=== PATIENT | male | born 1960 | race Caucasian/White ===

== ENCOUNTER 2023-10-03 14:32 | Emergency (ER) | payer BC ==
[~2023-10-03] VITALS: Ht 175.3 cm; Wt 88.0 kg
[2023-10-03 15:07] VITALS: BP 122/69
[2023-10-03 15:31] VITALS: BP 153/66
[2023-10-03] MEDS ORDERED: IPRATROPIUM-Albuterol 0.5MG-2.5MG/3 ML NEB ONE ×3 (15:35→19:35)
[2023-10-03] MEDS ORDERED: methylPREDNISolone SODIUM SUCC 125 MG/2 ML SDV IV ONE (15:35)
[2023-10-03 15:50] LABS: BASO% 0.2 % (0-3); EOS% 0.5 % (0-8); HEMATOCRIT 42.5 % (39.0-50.0); HEMOGLOBIN 14.2 g/dl (14.0-18.0); IMMATURE GRANULOCYTES 0.3 % (0.0-5.0); LYMPH% 12.1 % (15-41); MEAN CELL VOLUME 89.3 fL CALC (80.0-100.0); MEAN CORPUSCULAR HGB 29.8 pG CALC (26.0-32.0); MEAN CORPUSCULAR HGB CONC 33.4 g/dL CAL (32.0-36.0); MONO% 7.5 % (2-13); NEUT# 9.89 thou/uL (1.82-7.42); NEUT% 79.4 % (42-76); RED BLOOD COUNT 4.76 mill/uL (4.70-6.10); RED CELL DISTRI WIDTH 11.5 % (11.5-15.5)
[2023-10-03 16:00] VITALS: BP 159/76
[2023-10-03 16:30] VITALS: BP 147/74
[2023-10-03 16:32] LABS: ALBUMIN 4.8 g/dL (3.2-5.0); ALKALINE PHOSPHATASE 61 u/l (38-126); ANION GAP 16 (6-22 (CALC)); BILIRUBIN, TOTAL 0.7 mg/dL (0.2-1.3); BUN 17 mg/dL (8-23); BUN/CREATININE RATIO 19 (12-20 (CALC)); CARBON DIOXIDE 26 mmol/l (22-30); CHLORIDE 101 mmol/l (95-108); CREATININE 0.9 mg/dL (0.7-1.3); GFR FOR AFR.AMER. > 60 ML/MIN (>=60 (CALC)); GFR OTHER RACES > 60 ML/MIN (>=60 (CALC)); POTASSIUM 4.9 mmol/l (3.5-5.1); SGOT/AST 88 u/l (19-48); SODIUM 138 mmol/l (137-146); TOTAL PROTEIN 8.1 g/dL (6.3-8.2)
[2023-10-03 16:34] LABS: D-DIMER 0.76 mg/L (0.19-0.60)
[2023-10-03 16:43] LABS: PROTHROMBIN TIME 9.9 SECONDS (9.0-12.5)
[2023-10-03 17:00] VITALS: BP 147/72
[2023-10-03] MEDS ORDERED: DOXYCYCLINE HYCLATE 100 MG/CAP PO ONE (19:40)
[2023-10-03] MEDS ORDERED: VIBRAMYCIN100 M2 PO (19:47)
[2023-10-03] MEDS ORDERED: LEVOCETIRIZINE D5 MG PO (19:47)
[2023-10-03 20:06] VITALS: BP 147/72
== END 2023-10-03 20:16 | disposition home or self-care (01) | DRG 195 ==
LOC: ED 14:32
PROVIDERS: Nurse Practitioner
DX: J18.9 Pneumonia, unspecified organism (principal); I10 Essential (primary) hypertension; Z20.822 Contact with and (suspected) exposure to COVID-19
CPT/HCPCS: Q9967

== ENCOUNTER 2024-07-09 08:58 | Day surgery (SDC) | payer MEDICARE, BC ==
[~2024-07-09] VITALS: Ht 177.8 cm; Wt 90.7 kg
[~2024-07-09 08:58] MED LIST: ASPIRINCHW 81MG PO; LEVOCETIRIZINE D5 MG PO; NEBIVOLOL PO; OLMESARTAN MEDO40 MG PO; PRAVASTATIN10 MG PO; VIBRAMYCIN100 M2 PO
[2024-07-09] MEDS ORDERED: LACTATED RINGER'S 1,000 ML IV ONE (09:13)
[2024-07-09] MEDS ORDERED: FAMOTIDINE 10MG/ML 2ML SDV IV ONE (09:13)
[2024-07-09 11:57] VITALS: BP 117/69
[2024-07-09] MEDS ORDERED: PROPOFOL 500 MG/50 ML VIAL IV ONE (13:56)
[2024-07-09] MEDS ORDERED: LIDOCAINE HCL 2% 2ML SDV IV ONE (13:56)
[2024-07-09] MEDS ORDERED: GLYCOPYRROLATE 0.2 MG/ML IV ONE (13:56)
== END 2024-07-09 11:50 | disposition home or self-care (01) ==
LOC: ENDO 08:58
PROVIDERS: ATTEND Surgery
PROC: 0DJD8ZZ Inspection of Lower Intestinal Tract, Via Natural or Artificial Opening Endoscopic (ICD-10-PCS; principal; 2024-07-09)
DX: Z12.11 Encounter for screening for malignant neoplasm of colon (principal); K64.8 Other hemorrhoids; I10 Essential (primary) hypertension; E78.00 Pure hypercholesterolemia, unspecified